=== PATIENT | female | born 1960 | race Caucasian/White ===

== ENCOUNTER 2023-09-23 08:51 | Outpatient (CLI) | payer MEDICARE, BC | END 2023-09-23 08:52 | disposition home or self-care (01) | LOC: CSHMAMMO 08:51 | PROVIDERS: ATTEND Internal Medicine | DX: Z13.820 Encounter for screening for osteoporosis (principal); M85.88 Other specified disorders of bone density and structure, other site; Z78.0 Asymptomatic menopausal state | CPT/HCPCS: 77080 ==

== ENCOUNTER 2024-07-18 12:21 | Outpatient (CLI) | payer MEDICARE | END 2024-07-18 12:22 | disposition home or self-care (01) | LOC: CSHRAD 12:21 | PROVIDERS: ATTEND Internal Medicine Rheumatology | DX: M25.551 Pain in right hip (principal); M25.552 Pain in left hip; L40.9 Psoriasis, unspecified; M46.1 Sacroiliitis, not elsewhere classified; M19.09 Primary osteoarthritis, other specified site; M47.816 Spondylosis without myelopathy or radiculopathy, lumbar region | CPT/HCPCS: 73523 ==